=== PATIENT | female | born 1970 | race Caucasian/White ===

== ENCOUNTER 2023-04-01 18:45 | Observation (INO) | payer OTHER ==
[2023-04-01 21:45] VITALS: BMI 30.8
[2023-04-01] MEDS ORDERED: Ondansetron ODT 4 MG TAB SL PRN (21:45)
[2023-04-01] MEDS ORDERED: Ondansetron PF 4 MG/2 ML Vial IVP PRN ×2 (21:45→22:10)
[2023-04-01] MEDS ORDERED: Acetaminophen 325 MG TAB PO PRN ×2 (21:45→22:10)
[2023-04-01] MEDS ORDERED: Ondansetron ODT 4 MG TAB PO PRN (22:10)
[2023-04-01] MEDS ORDERED: Acetaminophen 650 MG Suppository PR PRN (22:10)
[2023-04-01] MEDS ORDERED: Senokot S 8.6-50 MG TAB PO PRN (22:10)
[2023-04-01] MEDS ORDERED: Bisacodyl 5 MG TAB PO PRN (22:10)
[2023-04-01] MEDS ORDERED: Nitroglycerin 0.4 MG TAB (25 Tab Bottle) SL PRN (22:34)
[2023-04-01] MEDS ORDERED: Acetaminophen 325 MG TAB PO SCH (22:45)
[2023-04-02] MEDS ORDERED: Electrolyte Replacement Protocol 1 EACH FS SCH (04:30)
[2023-04-02 04:48] LABS: Cardiac Risk 4.2 (Less than 4.5); Cholesterol 197 mg/dl (< 200 Desired); HDL Cholesterol 47 mg/dL (>60 Neg Risk); LDL Cholesterol, Calculated 118 mg/dL; Triglycerides 161 mg/dL (Less than 150)
[2023-04-02] MEDS ORDERED: Magnesium 2 GM/50 ML(in water) 2 GM in Premix Bag 1 BAG IVPB SCH (08:00)
[2023-04-02] MEDS ORDERED: Aspirin Chewable 81 MG TAB PO SCH (09:00)
[2023-04-02] MEDS ORDERED: Famotidine 20 MG TAB PO SCH (09:00)
[2023-04-02] MEDS ORDERED: Regadenoson 0.4 MG/5 ML SYRINGE ONE (09:17)
[2023-04-02 12:08] VITALS: BP 115/81; TEMP 97.5
== END 2023-04-02 15:30 | disposition home or self-care (01) ==
LOC: 2SE 18:45
PROVIDERS: ADMIT Student in an Organized Health Care Education/Training Program; ATTEND Internal Medicine
DX: R07.89 Other chest pain (principal); E78.5 Hyperlipidemia, unspecified; I10 Essential (primary) hypertension; K21.9 Gastro-esophageal reflux disease without esophagitis; F41.9 Anxiety disorder, unspecified; E66.9 Obesity, unspecified; Z68.30 Body mass index [BMI] 30.0-30.9, adult; Z79.899 Other long term (current) drug therapy; Z79.82 Long term (current) use of aspirin; Z90.89 Acquired absence of other organs; Z90.710 Acquired absence of both cervix and uterus; Z90.49 Acquired absence of other specified parts of digestive tract; Z88.8 Allergy status to other drugs, medicaments and biological substances
CPT/HCPCS: 36415; 78452; 80061; 83036; 83735; 84443; 93017; 96372; 96374; A9500; G0378; J1650; J2785; J3475

== ENCOUNTER 2023-07-12 11:53 | Outpatient (CLI) | payer OTHER | END 2023-07-12 11:54 | disposition home or self-care (01) | LOC: BICULT 11:53 | PROVIDERS: ATTEND Family Medicine | DX: R59.0 Localized enlarged lymph nodes (principal); E04.1 Nontoxic single thyroid nodule | CPT/HCPCS: 76536 ==

== ENCOUNTER 2023-10-04 10:34 | Outpatient (CLI) | payer OTHER | END 2023-10-04 10:35 | disposition home or self-care (01) | LOC: BICMRI 10:34 | PROVIDERS: ATTEND Family Medicine | DX: S73.191D Other sprain of right hip, subsequent encounter (principal) ==

== ENCOUNTER 2024-05-01 14:38 | Inpatient (IN) | payer OTHER ==
[2024-05-01 15:43] LABS: #Basophils 0.05 10x3/uL (0.0-0.2); %Basophils 0.6 % (0.0-1.0); %Lymphocytes 25.9 % (21.0-51.0); %Monocytes 5.7 % (0.0-10.0); %Neutrophils 66.6 % (42.0-75.0); Hematocrit 44.3 % (36.0-47.0); Hemoglobin 14.8 g/dL (12.0-16.0); Mean Corpuscular HGB CONC 33.4 g/dL (32.0-36.0); Mean Corpuscular Volume 86.9 fL (78.0-98.0); Mean Platelet Volume 11.5 fL (7.4-10.4); Platelet Count 199 10x3/uL (130-400); RBC Distribution Width 11.9 % (11.5-14.5)
[2024-05-01 15:59] LABS: ALT (SGPT) 23 U/L (8-55); AST (SGOT) 20 U/L (5-34); Albumin 4.2 g/dL (3.5-5.0); Alkaline Phosphatase 120 U/L (40-110); Anion Gap 15 mmol/L (10-20); BUN (Urea Nitrogen) 13 mg/dL (9.8-20.1); Bilirubin, Total 0.5 mg/dL (0.2-1.2); Calc. Creatinine Clearance 0 mL/min (70-130); Calcium 9.9 mg/dL (7.8-10.44); Carbon Dioxide 25 mmol/L (22-29); Chloride 104 mmol/L (98-107); Estimated GFR 89; Globulin 3.7 g/dL (2.4-3.5); Glucose 88 mg/dL (70-105); Lipase 38 U/L (8-78); Potassium 3.9 mmol/L (3.5-5.1); Protein, Total 7.9 g/dL (6.0-8.3); Sodium 140 mmol/L (136-145)
[2024-05-01 16:04] LABS: Troponin I 0.013 ng/mL (< 0.028)
[2024-05-01] MEDS ORDERED: Aspirin Chewable 81 MG TAB ONE (17:22)
[2024-05-01] MEDS ORDERED: Azithromycin 500 MG VIAL ONE (17:41)
[2024-05-01] MEDS ORDERED: Nitroglycerin 0.4 MG TAB (25 Tab Bottle) SL PRN (18:12)
[2024-05-01] MEDS ORDERED: Acetaminophen 325 MG TAB PO PRN (18:15)
[2024-05-01] MEDS ORDERED: Ondansetron PF 4 MG/2 ML Vial IVP PRN (18:16)
[2024-05-01 19:49] LABS: Troponin I Less than 0.010 ng/mL (< 0.028)
[2024-05-01 21:10] VITALS: BMI 28.7
[2024-05-01] MEDS: Pantoprazole 40 MG VIAL IVP SCH (22:11)
[2024-05-01] MEDS: traZODone HCl 50 MG TAB PO SCH (22:11)
[2024-05-01] MEDS: Enoxaparin 80 MG (0.8 mL) SYRINGE SC SCH (22:11)
[2024-05-01 22:34] LABS: Troponin I Less than 0.010 ng/mL (< 0.028)
[2024-05-02 04:52] LABS: #Basophils 0.08 10x3/uL (0.0-0.2); %Basophils 1.1 % (0.0-1.0); %Eosinophils 1.8 % (0.0-10.0); %Lymphocytes 37.8 % (21.0-51.0); %Monocytes 8.8 % (0.0-10.0); %Neutrophils 50.2 % (42.0-75.0); Hematocrit 39.1 % (36.0-47.0); Hemoglobin 13.2 g/dL (12.0-16.0); Mean Corpuscular HGB CONC 33.8 g/dL (32.0-36.0); Mean Corpuscular Hemoglobin 29.6 pg (27.0-31.0); Mean Corpuscular Volume 87.7 fL (78.0-98.0); Mean Platelet Volume 11.6 fL (7.4-10.4); Platelet Count 169 10x3/uL (130-400); RBC Distribution Width 11.9 % (11.5-14.5); Red Blood Cell (RBC) Count 4.46 mill/uL (4.20-5.40)
[2024-05-02 05:01] LABS: Anion Gap 15 mmol/L (10-20); BUN (Urea Nitrogen) 16 mg/dL (9.8-20.1); Calc. Creatinine Clearance 96 mL/min (70-130); Calcium 9.1 mg/dL (7.8-10.44); Carbon Dioxide 21 mmol/L (22-29); Cardiac Risk 4.6 (Less than 4.5); Chloride 109 mmol/L (98-107); Cholesterol 181 mg/dl (< 200 Desired); Estimated GFR 89; Glucose 93 mg/dL (70-105); HDL Cholesterol 39 mg/dL (>60 Neg Risk); LDL Cholesterol, Calculated 108 mg/dL; Potassium 3.5 mmol/L (3.5-5.1); Sodium 141 mmol/L (136-145); Triglycerides 169 mg/dL (Less than 150)
[2024-05-02] MEDS: LevoFLOXacin 500 MG TAB PO SCH (05:06)
[2024-05-02] MEDS ORDERED: Enoxaparin 80 MG (0.8 mL) SYRINGE SC SCH (09:00)
[2024-05-02] MEDS: Potassium Chloride 10 MEQ TAB PO SCH (13:11)
[2024-05-02] MEDS: Aspirin Chewable 81 MG TAB PO SCH (13:11)
[2024-05-02] MEDS: Enoxaparin 40 MG (0.4 mL) SYRINGE SC SCH (20:02)
[2024-05-03 04:46] LABS: #Basophils 0.04 10x3/uL (0.0-0.2); %Basophils 0.6 % (0.0-1.0); %Eosinophils 1.7 % (0.0-10.0); %Lymphocytes 38.7 % (21.0-51.0); %Monocytes 6.1 % (0.0-10.0); %Neutrophils 52.6 % (42.0-75.0); Hematocrit 41.1 % (36.0-47.0); Hemoglobin 13.7 g/dL (12.0-16.0); Mean Corpuscular HGB CONC 33.3 g/dL (32.0-36.0); Mean Corpuscular Hemoglobin 29.1 pg (27.0-31.0); Mean Corpuscular Volume 87.4 fL (78.0-98.0); Mean Platelet Volume 11.5 fL (7.4-10.4); Platelet Count 185 10x3/uL (130-400); RBC Distribution Width 11.9 % (11.5-14.5)
[2024-05-03 05:25] LABS: Anion Gap 12 mmol/L (10-20); BUN (Urea Nitrogen) 17 mg/dL (9.8-20.1); Calc. Creatinine Clearance 99 mL/min (70-130); Calcium 9.4 mg/dL (7.8-10.44); Carbon Dioxide 23 mmol/L (22-29); Chloride 108 mmol/L (98-107); Estimated GFR 93; Glucose 91 mg/dL (70-105); Potassium 4.1 mmol/L (3.5-5.1); Sodium 139 mmol/L (136-145)
[2024-05-03] MEDS: Pantoprazole DR 40 MG TAB PO SCH (08:21)
[2024-05-03] MEDS: Ranolazine ER 500 MG TAB PO SCH ×2 (11:36→22:59)
[2024-05-04] MEDS ORDERED: Heparin 10,000 UNITS/ 10 ML VIAL ONE (06:19)
[2024-05-04] MEDS ORDERED: Midazolam HCl 2 mg/2 ml Vial ONE (06:19)
[2024-05-04] MEDS ORDERED: Iopamidol 370 76% 100 ML VIAL ONE (09:22)
[2024-05-04 11:34] VITALS: BP 109/63; TEMP 97.9
== END 2024-05-04 14:10 | disposition home or self-care (01) | DRG 287 ==
LOC: ERS 14:38 → 2NO 17:52 → OBSVTOIN 05-03 09:05
PROVIDERS: ADMIT Internal Medicine; ATTEND Family Medicine
PROC: 4A023N7 Measurement of Cardiac Sampling and Pressure, Left Heart, Percutaneous Approach (ICD-10-PCS; principal; 2024-05-04)
PROC: B2111ZZ Fluoroscopy of Multiple Coronary Arteries using Low Osmolar Contrast (ICD-10-PCS; 2024-05-04)
PROC: B2151ZZ Fluoroscopy of Left Heart using Low Osmolar Contrast (ICD-10-PCS; 2024-05-04)
DX: R07.89 Other chest pain (principal); I10 Essential (primary) hypertension; K21.9 Gastro-esophageal reflux disease without esophagitis; F41.9 Anxiety disorder, unspecified; E87.6 Hypokalemia; F32.A Depression, unspecified; Z79.82 Long term (current) use of aspirin; Z88.8 Allergy status to other drugs, medicaments and biological substances; Z79.899 Other long term (current) drug therapy; Z90.710 Acquired absence of both cervix and uterus; Z98.51 Tubal ligation status; Z90.49 Acquired absence of other specified parts of digestive tract; Z98.890 Other specified postprocedural states
CPT/HCPCS: 36415; 71045; 71046; 80048; 80053; 80061; 83690; 83880; 84484; 85025; 87040; 93005; 93458; 94760; 96372; 96374; 96375; 96376; 99152; 99153; C1769; C1887; G0378; J0456; J1644; J1650; J2250; J2470; Q9967

== ENCOUNTER 2024-07-31 12:54 | Outpatient (CLI) | payer OTHER | END 2024-07-31 12:55 | disposition home or self-care (01) | LOC: ULT 12:54 | PROVIDERS: ATTEND Family Medicine | DX: E04.1 Nontoxic single thyroid nodule (principal) | CPT/HCPCS: 76536 ==

== ENCOUNTER 2024-10-16 10:00 | Outpatient (CLI) | payer OTHER | END 2024-10-16 10:01 | disposition home or self-care (01) | LOC: BICMAMMO 10:00 | PROVIDERS: ATTEND Family Medicine | DX: Z12.31 Encounter for screening mammogram for malignant neoplasm of breast (principal) | CPT/HCPCS: 77063; 77067 ==